=== PATIENT | female | born 1990 | race Hispanic/Latino ===

== ENCOUNTER 2018-01-04 09:25 | Inpatient (IN) | payer MEDICAID, SELFPAY ==
[2018-01-04] VITALS (16 sets, daily range): BP systolic 90–119; BP diastolic 55–72; PULSE 76–105; RESP 14–18; TEMP 36.4–37.5; O2SAT 96–100; BMI 43.9
--- NOTE | 2018-01-04 | FALS_PTH ---
PATIENT: JR CHAPPELL LOC: [facility] U#:[id number] AGE/SX: 27/F ROOM: WP008 RE01/04/[address]: Dr. Kathy Dejesus MD : 1990 BED: 1 DIS: 01/06/2018 SPEC #: [id number] RECD: 01/05/18 08:35 STATUS: MARCO A RELL #: [id number] ZHANG: 01/04/18 00:[address]: Kathy Dejesus DEPT: SURGICAL PATHOLOGY RECD BY: Mansoor Castillo ENTERED: 01/05/18 08:36 SP TYPE: FALL TUBES OTHR DR: Dr. Dago Sexton MD Tissues: Fallopian tube Procedures: Surgery Specimen Level II HEADER OPERATION: Not noted PRE-OP DIAGNOSIS: Repeat , BTO TISSUE SUBMITTED: Fallopian tubes MICROSCOPIC DIAGNOSIS Bilateral fallopian tubes, salpingectomy: Bilateral fallopian tubes including fimbrial ends, no pathologic diagnosis. SJ:cornelia 01/08/18 MICROSCOPIC DESCRIPTION Slides are reviewed. GROSS DESCRIPTION Received in fixative is one container labeled with the patient's name and designated suture, left. Received are bilateral fallopian tubes, including fimbrial ends. The left tube is identified by a suture. The right tube measures 7.5 cm in length and 0.6 cm in diameter. Sections reveal unremarkable cut surfaces. The left fallopian tube is similar to appearance to right and measures 6.5 cm in length and 0.7 cm in diameter. Biochemical Engineer sections are submitted in 2 cassettes as follows: 1 ? right fallopian tube, 2 ? left fallopian tube. RUTH:cornelia 01/05/18 TC:4 CPT:63438 x2
[2018-01-04] MEDS: Lactated Ringers 1,000 ML 999 ML IV (10:03)
[2018-01-04 10:04] LABS: Absolute Lymphocyte Count 1.28 X10^3/ul (0.83-4.51); Absolute Neutrophil Count 6.7 X10^3/uL (2.0-7.7); Basophil# 0.02 X10^3/uL; Basophil% 0.2 % (0-1); Eosinophils% 2.2 % (0-5); Hematocrit 35.6 % (37-47); Hemoglobin 11.4 g/dl (12.0-15.0); Lymphocyte # 1.28 X10^3/ul (4.0); Lymphocyte % 14.2 % (19-41); Mean Corpuscular Hgb 28.3 pg (27.0-32.0); Mean Corpuscular Volume 88.3 fL (81-99); Mean Platelet Vol. 10.5 fl (6.2-12.0); Monocyte# 0.86 X10^3/uL; Monocyte% 9.5 % (0-10); Neutrophil # 6.65 X10^3/uL (2.7-7.7); Neutrophil % 73.7 % (47-70); Platelet Count 203 K/mm3 (150-450); RBC Distribution Width CV 15.1 % (11.6-14.6); RBC Distribution Width SD 48.3 fl (35.1-43.9); Red Blood Count 4.03 M/mm3 (4.2-5.4)
[2018-01-04 10:08] LABS: POSITIVE COUNT NO; POSITIVE DIFFERENTIAL NO; POSITIVE MORPHOLOGY NO
[2018-01-04] MEDS: Lactated Ringers 1,000 ML 150 ML IV (11:04)
[2018-01-04] MEDS: Sodium Citrate/Citric Acid 30 ML UDC PO (11:49)
[2018-01-04] MEDS: Cefazolin 2 GM in 0.9% Normal Saline 100 ML IV (11:49)
[2018-01-04] MEDS: Oxytocin 30 units/NS 500 ml 30 UNITS/500 ML IV.SOLN 167 UNITS IV (12:42)
--- NOTE | 2018-01-04 14:17 | PCM.OB.CSR ---
Delivery Final RICARDO: 01/11/18 Gestational age: 39 Weeks and 0 Days Indications for : Repeat Elective , Desires elective sterilization Description of Procedure: Patient taken to OR where spinal anesthesia was placed. She was prepped and draped in normal sterile fashion in a dorsal lithotomy position with a leftward tilt. After ensuring adequacy of anesthesia the Pfannensteil skin incision was made and carried through to the underlying fascia w/ a bovie. The fascia was incised in the midline and carried laterally with the Toledo scissors. The rectus muscles were in the midline and the peritoneum was entered sharply. The bladder flap was dissected down with the Metzenbaum scissors and careful blunt dissection. The uterine incision was made with the scalpel and extended laterally w/ blunt dissection. The fetus was vertex and the head was brought to the incision in the flexed position. With good fundal pressure the head delivered. Gentle traction placed on head to allow delivery of anterior & posterior shoulders. No excess traction placed on head. Body delivered easily. The cord was clamped and cut after 1 minute delay and the infant handed off to waiting RN. The placenta was delivered w/ gentle traction and fundal massage and the uterus was exteriorized and cleared of all clots and debris. The uterine incision was closed with 1 vicryl suture in a running locked fashion. The uterus was returned to the peritoneal cavity which was cleared of all clots and debris. The right fallopian tube was grasped with hugo clamps. The fallopian tube was excised & doubly suture ligated. This was repeated on the left fallopian tube. One additional figure of 8 suture was placed at the right salpingectomy site. Excellent hemostasis was noted at both salpingectomy sites. Pelvis was irrigated. The uterine incision was reexamined and found to be hemostatic. Some rafi was placed over the uterine incision due to the denuded areas. At this time a bladder defect was noted. called & bladder injury repaired (please see separate op note) The fascia was closed with looped PDS suture in a running standard fashion. The subcutaneous tissue was examined, any bleeding bovie cauterized. The subcutaneous tissue was reapproximated with 3-0 vicryl suture. The skin was closed in a subcuticular fashion by the APPAREL EMBROIDERY DIGITIZER with me present in the labor and delivery suite. I performed the remainder of the procedure w/ assistance. Amniotic Membrane Rupture Type: Artificial Amniotic Fluid Description: Clear Placenta Disposition: [facility] Specimen(s) sent to pathology: bilateral fallopian tubes Drain: Galindo to straight drain Cord Entanglement: None Cord Vessel Description: 3 Vessels Esitmated Blood Loss (ml): 800ml Gender: Female (1 minute): 8 (5 minute): 9 Delayed cord clamping: Yes Pre-op Antibiotic Given: Ancef 2 grams IV x1 Complications: - - Cystotomy
--- NOTE | 2018-01-04 14:19 | PCM.IMED.CSR ---
O-Pdbeavc-Kxbltrdpu PostOp Date of Procedure: 01/04/18 Primary Surgeon/Physician: Kathy Dejesus assistant womens volleyball coach: David Diana Pre-op Diagnosis: Repeat Elective , Desires elective sterilization Post-Op Diagnosis: Repeat Elective , Desires elective sterilization Surgery/Procedure Performed: Repeat low transverse Section - Bilateral salpingectomy; Cystotomy repair Description of Surgical Findings:: normal uterus & ovaries Estimated Blood Loss: 800ml Specimens Removed: bilateral fallopian tubes Drain: Galindo to straight drain Type of Anesthesia: Epidural
[2018-01-04 14:46] LABS: Pathology Specimen OB SEE PATHOLOGY REPORT
--- NOTE | 2018-01-04 15:00 | NURSING ---
[facility] lot #[id number], use by 10/04/2022
[2018-01-04] MEDS: proMETHazine 25 MG/ML Syringe 12.5 MG IV (15:18)
--- NOTE | 2018-01-04 17:45 | PCM.OPRPT ---
Report of Operation Date of Procedure: 01/04/18 Pre-Operative Diagnosis: Bladder injury at the time of Post-Operative Diagnosis: Same Surgery/Procedure Performed:: Repair of open cystotomy Description of Surgical Findings:: 27-year-old female who underwent elective she had a history of prior surgery in the area and I was called in to see the patient the baby had already been delivered by a injury to the dome of the bladder was recognized by the technology development intern and they called me and to assist in repairing the injury. When I scrubbed and she had a lower Pfannenstiel incision the uterus has been closed and the top of the bladder had an opening about 5 cm in length appeared to be in the midline from the top going anterior, I closed the first layer with 3-0 Vicryl in a continuous fashion. I then closed the second layer with a imbrication of 2-0 Vicryl over the top of the first layer we then had the bladder filled up with 300 cc of water and there was no leakage from the repair of the bladder injury. No other obvious injury was recognized and at this point turned the case over to the technology development intern who closed the abdomen. community health navigator: David Diana Type of Anesthesia:: General Estimated Blood Loss (mL): 800ml - Admit VTE Documentation VTE Present on Admission: Yes VTE Mechan Device Prophylaxis: SCD's
--- NOTE | 2018-01-04 17:51 | CON.PCM_ITS ---
Reason for Consult Date of Consultation: 01/04/18 Reason for Consultation: Bladder injury History of Present Illness: The patient is a 27 year old female who had an injury to her bladder during a C- section I was called in to assist with repair of the bladder injury. Past Medical History Allergies No Known Allergies Allergy (Verified 01/04/18 10:03) Home Medications: Ambulatory Orders Medication Instructions Recorded Vits [Prenatabs FA] 1 tablet PO DAILY 07/22/17 Famotidine [Pepcid] 20 mg PO DAILY 01/04/18 Surgical History: noncontributory Psychiatric History: No pertinent psych hx Smoking Status: Former smoker Tobacco Use: Non-smoker Alcohol: None Drugs: None - *Family History Maternal History Items: No pertinent history Review of Systems Constitutional: Denies: Chills, Fever, Weight Change HEENT: Denies: Head Aches, Sinus Congestion, Sinus Drainage Cardiovascular: Denies: Chest Pain, Palpitations Respiratory: Denies: Cough, Shortness of breath at rest, Sputum production Gastrointestinal: Denies: Abdominal Pain, Nausea, Vomiting Genitourinary: Denies: Dysuria Musculoskeletal: Denies: Joint Pain, Joint Tenderness Skin: Denies: Rash, Wounds Neurological: Denies: Numbness, Tingling, Focal weakness Psychiatric: Denies: Anxiety, Depression, Homicidal Ideations, Suicidal Ideations Hematologic/ Lymphatic: Denies: Easy Bruising, Easy Bleeding Physical Exam - Physical Exam Vital Signs Temp 98.7 F 01/04/18 17:30 Pulse 92 01/04/18 17:30 Resp 16 01/04/18 17:30 BP 103/61 01/04/18 17:30 Pulse Ox 100 01/04/18 17:30 Intake & Output 01/02/18 01/03/18 01/04/18 23:59 23:59 23:59 Intake Total 2271 / 2271 Output Total 525 / 525 Balance 1746 / 1746 Weight: 98.6 kg Intake: Oral 300 / 300 IV fluid/meds 1970 IV #4 1800 / 1800 Output: Urine 275 / 275 Emesis 250 / 250 HEENT: Atraumatic Neck: Supple Lungs: Normal air movement Cardiovascular: Regular rate Laboratory Tests Past 24 Hrs 01/04/18 01/04/18 09:45 09:45 WBC 9.0 RBC 4.03 L Hgb 11.4 L Hct 35.6 L MCV 88.3 MCH 28.3 MCHC 32.0 RDW 15.1 H RDW Differential 48.3 H Plt Count 203 MPV 10.5 Immature Gran % (Auto) 0.200 Neut % (Auto) 73.7 H Lymph % (Auto) 14.2 L [place] % (Auto) 9.5 Eos % (Auto) 2.2 Baso % (Auto) 0.2 Absolute Neuts (auto) 6.7 Absolute Lymphs (auto) 1.28 Total Counted Not Reportable Blood Type A POSITIVE Antibody Screen NEGATIVE Assessment/Plan Bladder injury repair pt will need follow up with urology on discharge my office will call patient to arrange. home with cantu.
[2018-01-04] MEDS: 0.9% Saline Lock 10 ML Syringe IV (17:53)
[2018-01-04] MEDS: Ketorolac 30 MG/ML Syringe IV ×2 (17:53→23:58)
[2018-01-04] MEDS: Lactated Ringers 1,000 ML 100 ML IV (21:50)
[2018-01-05] VITALS (9 sets, daily range): BP systolic 93–118; BP diastolic 63–74; PULSE 73–92; RESP 16; TEMP 36.4–37.3; O2SAT 97–99
[2018-01-05] MEDS: Ketorolac 30 MG/ML Syringe IV ×3 (06:19→17:53)
[2018-01-05 06:55] LABS: Hematocrit 29.8 % (37-47); Hemoglobin 9.7 g/dl (12.0-15.0); Mean Corp Hgb Conc 32.6 g/gl (32-36); Mean Corpuscular Hgb 28.4 pg (27.0-32.0); Mean Corpuscular Volume 87.4 fL (81-99); Mean Platelet Vol. 10.6 fl (6.2-12.0); Platelet Count 195 K/mm3 (150-450); RBC Distribution Width CV 15.3 % (11.6-14.6); RBC Distribution Width SD 48.6 fl (35.1-43.9); Red Blood Count 3.41 M/mm3 (4.2-5.4); White Blood Count 12.5 K/mm3 (4.4-11.0)
[2018-01-05 06:56] LABS: Scan Indicated on CBC? Y/N NO
[2018-01-05] MEDS: Lactated Ringers 1,000 ML 100 ML IV (08:20)
--- NOTE | 2018-01-05 08:27 | PN.OBGYN_ITS ---
Subjective: pt seen at bedside, doing well. pt reports good pain control. lochia mild. passing flatus. - Physical Exam General: Alert, Oriented x3 Abdomen: Soft, Non-Distended, Passing Flatus, - - fundus firm .dressing dry and intact Extremities: No Calf Tenderness Vital Signs Temp Pulse Resp BP Pulse Ox 97.5 F L 88 16 93/63 98 01/05/18 04:00 01/05/18 04:00 01/05/18 06:10 01/05/18 04:00 01/05/18 06:10 Oxygen Delivery Method Room Air Weight: 98.6 kg Body Mass Index (BMI) 43.9 Intake and Output for Last 24 Hours 01/03/18 01/04/18 01/05/18 23:59 23:59 23:59 Intake Total 2271 / 2271 1398 / 1398 Output Total 525 / 525 1100 / 1100 Balance 1746 / 1746 298 / 298 Laboratory Tests Past 24 Hrs 01/04/18 01/04/18 01/05/18 09:45 09:45 06:25 WBC 9.0 12.5 H RBC 4.03 L 3.41 L Hgb 11.4 L 9.7 L Hct 35.6 L 29.8 L MCV 88.3 87.4 MCH 28.3 28.4 MCHC 32.0 32.6 RDW 15.1 H 15.3 H RDW Differential 48.3 H 48.6 H Plt Count 203 195 MPV 10.5 10.6 Immature Gran % (Auto) 0.200 Neut % (Auto) 73.7 H Lymph % (Auto) 14.2 L [place] % (Auto) 9.5 Eos % (Auto) 2.2 Baso % (Auto) 0.2 Absolute Neuts (auto) 6.7 Absolute Lymphs (auto) 1.28 Total Counted Not Reportable Blood Type A POSITIVE Antibody Screen NEGATIVE Medical Necessity - Tobacco Use Smoking Status: Former smoker Tobacco Use: Non-smoker Assessment/Plan POD#1 1) bladder injury- urology consultation done intraop - will keep cantu- Dr. Roberts office to call for follow up in about 10 days for cystogram 2) pain mgmt 3) maintain cantu 4) ambulation
--- NOTE | 2018-01-05 08:33 | DCINST_ITS ---
Discharge Diet: No Restrictions Discharge Activity: Return to Normal Activity, May Not Drive - for 2 weeks, May not drive while taking narcotic pain medications., May Shower, May Take a Tub Bath - in 7 days. May resume sexual activity in: 4-6 weeks Lifting Restrictions: 20 pounds Additional Activity Instructions:: Nothing in the vagina for 4-6 weeks. You may return to work/school in 6 weeks. Call your doctor if your incision/area has: Continuous Slow Oozing, Sudden Increased Bleeding, Increased Pain/ Swelling, Increased Redness, Foul Smelling Discharge Call your doctor if you observe: Fever of 101 or Higher, Using more than one pad per hour - for 2 hours Suture Line Care: Avoid Pulling/Pushing, Avoid Pinching/Bending Cleanse incision/area with: Keep Dressing Clean & Dry Additional Instructions: If you experience any of the following, contact your healthcare provider. * Bleeding that soaks a pad every hour for 2 hours * Fever 100.4 or higher * Unrelieved incision or abdominal pain * Swelling, redness, discharge or bleeding from your incision or episiotomy site * Your incision begins to separate * Problems urinating (including inability to urinate or burning while urinating) . * Visual changes * Severe headache * Flu-like symptoms * Pain or redness in one of both of your breasts * Pain, warmth, tenderness or swelling in your legs, especially the calf area * Frequent nausea and vomiting * Symptoms of depression or anxiety If you experience any of the following, call 911 or go to the nearest Emergency Room. * Chest pain * Problems breathing * Seizure activity * Partial or complete paralysis of a body part, slurred speech, weakness or drooping of the face, or a sudden inability to walk or hold your balance Allergies/Adverse Reactions: Allergies No Known Allergies Allergy (Verified 01/04/18 10:03) Medications to take at Discharge Vits [Prenatabs FA] 1 tablet PO DAILY 07/22/17 Famotidine [Pepcid] 20 mg PO DAILY 01/04/18 Ibuprofen [Motrin] 800 mg PO Q8H PRN PRN #30 tab 01/05/18 Oxycodone HCl/Acetaminophen [Percocet 5/325] 1 tablet PO Q6H PRN PRN 7 Days #28 tablet 01/05/18 Senna/Docusate Sodium [Senokot-S] 1 - 2 tab PO DAILY PRN #30 tab 01/05/18 SimETHICONE [Mylicon] 80 mg PO PCHS PRN #30 tab 01/05/18 The following prescriptions were given: Oxycodone HCl/Acetaminophen [Percocet 5/325] 1 tablet PO Q6H PRN PRN 7 Days #28 tablet PRN Reason: Pain Ibuprofen [Motrin] 800 mg PO Q8H PRN PRN #30 tab PRN Reason: Pain Senna/Docusate Sodium [Senokot-S] 1 - 2 tab PO DAILY PRN #30 tab PRN Reason: Constipation SimETHICONE [Mylicon] 80 mg PO PCHS PRN #30 tab PRN Reason: Indigestion/stomach pain Follow-Up: Call to make an appointment with your doctor for an incision check in 1-2 weeks. You will also need a 6 week post- follow up appointment. Please Follow Up With: Nany Morrow MD - Call to make an appointment for an incision check in 1-2 [phone] When: You will need a post- check in 6 weeks. Primary Care Physician: Dago Sexton MD [Primary Care Provider] -
[2018-01-05] MEDS: 0.9% Saline Lock 10 ML Syringe IV ×2 (12:11→17:53)
[2018-01-05] MEDS: oxyCODONE 5 MG Tablet PO ×2 (17:20→23:01)
[2018-01-05] MEDS: Senna/Docusate Sodium 1 Tablet PO (20:49)
[2018-01-06] MEDS: Ketorolac 30 MG/ML Syringe IV ×3 (00:12→12:12)
[2018-01-06] MEDS: 0.9% Saline Lock 10 ML Syringe IV ×2 (00:13→12:13)
[2018-01-06 02:00] VITALS: BP 102/62; PULSE 74; RESP 16; TEMP 37.1; O2SAT 97
[2018-01-06 08:00] VITALS: BP 119/70; PULSE 81; RESP 17; TEMP 36.8; O2SAT 100
--- NOTE | 2018-01-06 08:03 | PCM.PN.OB ---
Subjective: pt seen at bedside doing well. pt reports good pain control. lochia mild. denies CP, SOB, dizziness. Passing flatus - Physical Exam General: Alert, Oriented x3 Abdomen: Soft, Non-Distended, - - fundus firm. Extremities: No Calf Tenderness Vital Signs Temp Pulse Resp BP Pulse Ox 98.8 F 74 16 102/62 97 01/06/18 02:00 01/06/18 02:00 01/06/18 02:00 01/06/18 02:00 01/06/18 02:00 Oxygen Delivery Method Room Air Weight: 98.6 kg Body Mass Index (BMI) 43.9 Intake and Output for Last 24 Hours 01/04/18 01/05/18 01/06/18 23:59 23:59 23:59 Intake Total 2271 / 2271 1398 / 1398 Output Total 525 / 525 2150 / 2150 1400 / 1400 Balance 1746 / 1746 -752 / -752 -1400 / -1400 Medical Necessity - Tobacco Use Smoking Status: Former smoker Tobacco Use: Non-smoker Assessment/Plan POD#2, doing well routine care pain mgmt [facility]
--- NOTE | 2018-01-06 08:05 | PCM.DC.BLA ---
Discharge Summary Date of Admission: 01/04/18 Date of Discharge: 01/06/18 Summary: This patient was admitted with the [facility] on 01/04/2018 for a scheduled repeat section and bilateral tubal ligation performed by Dr. Kathy Dejesus. Patient had an incidental cystotomy during the procedure. Had a cystotomy repaired performed by Dr. Nelson Roberts without complication. Patient did well postoperatively urine output was adequate. Urine that was draining was light yellow in nature. Postoperative labs were stable. Patient discharged home on postoperative day #2 January 06, 2018 in stable condition. Patient will have a Galindo to leg bag until she was seen by Dr. Alejandra wesley in his office approximately 10 days from now. Patient was given DR. Roberts office number to call for an appointment.
--- NOTE | 2018-01-06 08:08 | DS.PCM_ITS ---
Discharge Summary Date of Admission: 01/04/18 Date of Discharge: 01/06/18 Summary: This patient was admitted with the [facility] on 01/04/2018 for a scheduled repeat section and bilateral tubal ligation performed by Dr. Kathy Dejesus. Patient had an incidental cystotomy during the procedure. Had a cystotomy repaired performed by Dr. Nelson Roberts without complication. Patient did well postoperatively urine output was adequate. Urine that was draining was light yellow in nature. Postoperative labs were stable. Patient discharged home on postoperative day #2 January 06, 2018 in stable condition. Patient will have a Galindo to leg bag until she was seen by Dr. Alejandra wesley in his office approximately 10 days from now. Patient was given DR. Roberts office number to call for an appointment.
[2018-01-06] MEDS: oxyCODONE 5 MG Tablet PO (11:01)
[2018-01-06 13:00] VITALS: BP 120/70; PULSE 74; RESP 16; TEMP 36.7; O2SAT 99
== END 2018-01-06 13:15 | disposition home or self-care (01) | DRG 370 ==
PROVIDERS: Admitting Provider Obstetrics & Gynecology; Family Provider Family Medicine; PCP Family Medicine; Visit Provider Obstetrics & Gynecology
PROC: 10D00Z1 Extraction of Products of Conception, Low, Open Approach (ICD-10-PCS; CPT 59514; principal; 2018-01-04 11:45)
DX: O34.211 Maternal care for low transverse scar from previous cesarean delivery (principal); N99.71 Accidental puncture and laceration of a genitourinary system organ or structure during a genitourinary system procedure; O71.5 Other obstetric injury to pelvic organs; Z3A.39 39 weeks gestation of pregnancy; Z37.0 Single live birth
CPT/HCPCS: 36415; 85025; 85027; 86850; 86900; 88302; 99218; J7120; A4216; G0378; J2405; Q9968

== ENCOUNTER → 2018-01-15 11:26 | Outpatient (CLI) | payer MEDICAID, SELFPAY ==
--- NOTE | 2018-01-15 11:37 | RAD_ITS ---
CLINICAL HISTORY: Female, 27 years old. Assessment of the prior bladder injury. PROCEDURE: Cystogram. FLUOROSCOPY TIME (if supplied): (0:40) minutes/seconds 150 mL of contrast installed into the bladder in a retrograde fashion through the indwelling Galindo catheter. The radiologist installed the contrast into the bladder. RAD/Cystography min 3 Views IMPRESSION: There is no evidence of bladder leakage. No evidence of vesicoureteral reflux. Electronically Signed: Chris Cheung MD at 12:35 EDT Tel [phone], Service support ,
== END ==
PROVIDERS: Family Provider Family Medicine; PCP Family Medicine; Visit Provider Urology
DX: S37.20XD Unspecified injury of bladder, subsequent encounter (principal)
CPT/HCPCS: 51600; 74430

== ENCOUNTER 2018-08-31 12:42 | Emergency (ER) | payer MEDICAID, SELFPAY ==
[2018-08-31 12:43] VITALS: BP 121/70; PULSE 118; RESP 18; TEMP 37.1; O2SAT 96; BMI 43.4
--- NOTE | 2018-08-31 13:20 | ED.DCSUM_ITS ---
- ER Visit Summary Date of Service: 08/31/18 Chief Complaint: Subjective fever, nasal congestion and cough History of Present Illness: The patient is a 28 F who presents with illness that started less than 48 hours ago. She complains of headache, sore throat, nonproductive cough, subjective fever with myalgias and arthralgias. She denies GI or symptoms. She denies joint swelling. Does complain of myalgias and arthralgias. She has not noted a rash. She denies photophobia, neck pain or neck stiffness. She is a non-smoker. 2 of her siblings were ill several days prior to the onset of her illness. Physical Examination: Vital signs noted. Patient appears ill but not toxic. Head is atraumatic normocephalic. Pupils are equal round reactive. Extraocular muscles are intact. TMs are pearly white with landmarks noted. Nares patent with mild clear drainage. Posterior pharynx without erythema or exudate. Uvula is midline. There is no dysphonia or dysphasia. Trachea is midline. There is no stridor with auscultation of the neck. Heart is regular without murmur, gallop or rub. S1 and S2 are normal. Lungs are clear to auscultation with good movement of air bilaterally. Abdomen soft nontender. Neuro exam nonfocal. Test Results: None were obtained Emergency Department Course and Treatment: Approximate 8-month-old child here with flulike symptoms. Child's influenza rapid screen is positive will treat mother as well. Mother received first dose of Tamiflu Treatment Plan: Tamiflu 75 mg twice daily Disposition: Discharge to home Impression: Influenza type a This note was generated with [employer] dictation software. It may contain incorrect words, spelling, and punctuation that were not noted in review of the chart prior to signing ED Disposition - Plan for ED Patient: Disposition: Home or Assisted Living Instructions: ED Flu Prescriptions: Oseltamivir Phosphate [Tamiflu] 75 mg PO BID #10 capsule Referrals: Dago Sexton MD [Primary Care Provider] - 10-14 Days if not better Additional Instructions: Your prescription was electronically transmitted to [facility] pharmacy located on [address] your designated pharmacy of choice.
[2018-08-31 13:38] VITALS: O2SAT 97
[2018-08-31] MEDS: Oseltamivir Phosphate 75 MG Capsule PO (13:48)
== END 2018-08-31 14:45 | disposition home or self-care (01) ==
PROVIDERS: Emergency Provider Emergency Medicine; Family Provider Family Medicine; PCP Family Medicine
DX: J09.X2 Influenza due to identified novel influenza A virus with other respiratory manifestations (principal); E66.9 Obesity, unspecified; J32.9 Chronic sinusitis, unspecified; Z79.899 Other long term (current) drug therapy
CPT/HCPCS: 99283

== ENCOUNTER 2019-04-18 13:37 | Emergency (ER) | payer MEDICAID, SELFPAY ==
[2019-04-18 13:38] VITALS: BP 109/71; PULSE 64; RESP 18; TEMP 37.1; O2SAT 100; BMI 42.2
--- NOTE | 2019-04-18 13:53 | CT_ITS ---
STUDY: CT ABDOMEN AND PELVIS WITHOUT CONTRAST REASON FOR EXAM: Female, 28 years old. Left flank pain. RADIATION DOSAGE (If Supplied By Facility): CTDIvol = ( 20.39 ) mGy, DLP = ( 1029.00 ) mGycm TECHNIQUE: Transaxial images were obtained from the dome of the diaphragm to the symphysis pubis without oral contrast, and without intravenous contrast. Sagittal and coronal images were reconstructed. Individualized dose optimization techniques were used for this CT. COMPARISON: None. FINDINGS: The visualized lung bases are unremarkable. The visualized portions of the heart are within normal limits. The liver is normal. The spleen is normal. The adrenal glands are normal. The head, body, and tail of the pancreas are normal. The kidneys are normal with no evidence of calyceal calculi, masses, seen. There is mild left renal hydronephrosis and hydroureter down to level of the urinary bladder. Within the bladder is a 5 mm calculus which presumably has passed from the left ureter.The abdominal aorta appears to be normal and no periaortic lymphadenopathy is seen. No abdominal masses or lesions are identified. A CT scan of the pelvis was performed and shows the common iliac vessels, external iliac vessels and common femoral vessels to be normal along their course and distribution. Uterus is anteflexed. The appendix cannot be visualized. The cecum is identified and appears normal and no pericecal inflammatory reaction is seen Bone scanning windows of the lumbar spine pelvis were reviewed in the coronal and sagittal planes and show no additional abnormalities. CT/Abdomen/Pelvis without Cont IMPRESSION: Mild left renal hydronephrosis and hydroureter due to a recently passed 5 mm ureteral calculus which is now in the urinary bladder.. Electronically Signed: Orlin Rico, at 16:34 EDT Tel , Service support ,
--- NOTE | 2019-04-18 13:54 | ED.VISSUMM ---
- ER Visit Summary Date of Service: 04/18/19 Chief Complaint: Flank pain History of Present Illness: The patient is a 28 F with left-sided flank pain that started relatively suddenly earlier today. It radiates into her vaginal area. She had some hematuria in the past. Associate with nausea and vomiting. No history of kidney stones. No other pertinent history of findings. Physical Examination: Afebrile and vital signs unremarkable. Patient appears uncomfortable, clutching an emesis bag. Heart regular. No respiratory distress. Left flank tender. Test Results: Labs, urine, CT pending Emergency Department Course and Treatment: Patient treated with fluids, Zofran, Toradol while awaiting results. CBC, BMP, urine macro all fairly unremarkable. test was negative. We are awaiting urine micro and CT results. Patient is comfortable and vitals are stable after Toradol, Zofran, fluids, and morphine. The oncoming doctor will check the urine micro and CT results. Disposition and treatment accordingly. I notified the patient that these results are pending, and we will treat her accordingly. Treatment Plan: As above Disposition: Pending Impression: 1. Left flank pain This note was generated with [employer] dictation software. It may contain incorrect words, spelling, and punctuation that were not noted in review of the chart prior to signing ED Disposition - Plan for ED Patient: Referrals: Dago Sexton MD [Primary Care Provider] -
[2019-04-18] MEDS: Ondansetron 4 MG/2 ML Vial IV (14:04)
[2019-04-18] MEDS: 0.9% Normal Saline 1,000 ML 1000 ML IV (14:04)
[2019-04-18] MEDS: Ketorolac 30 MG/ML Syringe IV (14:08)
[2019-04-18 14:23] LABS: Absolute Lymphocyte Count 2.57 X10^3/uL (0.83-4.51); Basophil# 0.05 X10^3/uL; Basophil% 0.5 % (0-1); Eosinophil# 0.32 X10^3/uL; Eosinophils% 2.9 % (0-5); Hematocrit 39.1 % (37-47); Hemoglobin 12.2 g/dL (12.0-15.0); Lymphocyte # 2.57 X10^3/ul (4.0); Lymphocyte % 23.5 % (19-41); Mean Corp Hgb Conc 31.2 g/dL (32-36); Mean Corpuscular Hgb 26.6 pg (27.0-32.0); Mean Corpuscular Volume 85.4 fL (81-99); Monocyte# 0.95 X10^3/uL; Monocyte% 8.7 % (0-10); NRBC Flagged by Analyzer 0 % (0-5); Neutrophil # 7.01 X10^3/uL (2.7-7.7); Neutrophil % 64.2 % (47-70); Platelet Count 322 K/mm3 (150-450); RBC Distribution Width CV 14.6 % (11.6-14.6); RBC Distribution Width SD 45.1 fl (35.1-43.9); Red Blood Count 4.58 M/mm3 (4.2-5.4); White Blood Count 10.9 K/mm3 (4.4-11.0)
[2019-04-18 14:34] LABS: Anion Gap 7 (5-15); BUN 13 mg/dL (7-18); BUN/Creat Ratio 16.5 RATIO (10-20); Calcium,Total 9.3 mg/dL (8.5-10.1); Chloride 106 mmol/L (98-107); Creatinine, Serum 0.79 mg/dL (0.55-1.02); EST Glomerular Filtration Rate 92 mL/min (>60); Est Glom Filt Rate - Afr Amer 111 mL/min (>60); Estimated Creatinine Clearance 158.67 ml/min; Glucose 114 mg/dL (74-106); Potassium 3.7 mmol/L (3.5-5.1); Sodium Level 139 mmol/L (136-145)
[2019-04-18] MEDS: Morphine 4 MG/ML Syringe IV (15:12)
[2019-04-18 15:50] LABS: White Blood Cells 0 SEEN /hpf (0-5)
[2019-04-18 15:55] LABS: Color, Urine Yellow (Yellow); Glucose, Dipstick Normal (Normal); Ketone-Dipstick 5 mg/dl (Negative); Leukocyte Esterase-Dipstick Negative /ul (Negative); Nitrite-Dipstick Negative (Negative); Occult Blood-Urine 25 /ul (Negative); Protein-Dipstick 15 mg/dl (Negative); Specific Gravity, Urine 1.025 (1.002-1.030); Urine Bilirubin Dipstick Negative (Negative); Urine Clarity Sl. Cloudy (Clear); Urine Urobilinogen Normal (Normal)
[2019-04-18 15:57] LABS: Internal QC Validated? YES +Cl - CLEAR BKGD; Pregnancy, Urine Negative Negative
[2019-04-18 16:06] LABS: Mucous, Urine 3+ /hpf (<or=2+); Squamous Epithelial Cells - UA 5-10 SEEN /hpf (5-10)
[2019-04-18 16:07] LABS: Red Blood Cells-Urine 0-5 SEEN /hpf (0-5)
[2019-04-18 16:13] LABS: Bacteria 1+ /hpf (None Seen)
[2019-04-18 16:16] VITALS: BP 100/78; PULSE 64; RESP 16; O2SAT 100
--- NOTE | 2019-04-18 16:39 | ED.DCSUM_ITS ---
- ER Visit Summary Date of Service: 04/18/19 Chief Complaint: [Left flank pain/addendum to initial dictation] History of Present Illness: The patient is a 28 F [presented with left flank pain today that started suddenly. Care of patient turned over to me awaiting report of CT scan to evaluate for kidney stone. Patient currently has minimal pain and is feeling well.] Physical Examination: [HEENT-PERRLA, EOMI. Cranial nerves II through XII grossly intact. TMs clear. Mucous membranes moist. No adenopathy. Cardiovascular-regular rate and rhythm without murmur or ectopy Lungs-clear to auscultation, chest wall stable without crepitus or subcu emphysema Abdomen-normoactive bowel sounds, soft, nontender, no rebound or rigidity, no peritoneal signs. Extremities-intact ?4, normal range of motion, normal pulses, atraumatic] Test Results: [CT scan of the abdomen pelvis was read by radiology has mild left renal hydronephrosis and hydroureter due to recently passed 5 mm ureteral calculus which is now in the urinary bladder.] Emergency Department Course and Treatment: [She had been medicated by Dr. Durbin with Zofran, Toradol, and morphine and she was doing well.] Treatment Plan: [She will be given urine strainers and referral to urology for follow-up. Patient will be given a prescription for a few [place] for pain.] Disposition: [Discharged home in stable condition. Patient advised to return if worsening pain, fever, vomiting, or conditions worsen anyway.] Impression: [No lithiasis] This note was generated with [employer] dictation software. It may contain incorrect words, spelling, and punctuation that were not noted in review of the chart prior to signing ED Disposition - Plan for ED Patient: Referrals: Dago Sexton MD [Primary Care Provider] -
--- NOTE | 2019-04-18 16:41 | DCINST.ED_ITS ---
ED Disposition - Plan for ED Patient: Instructions: KIDNEY STONE w/ Colic, KIDNEY STONE, Passed Prescriptions: Hydrocodone Bitart/Apap 5-325 [[place] 5MG-325MG] 1 tab PO Q4H PRN PRN 2 Days #10 tab PRN Reason: Pain Prescription Printed Referrals: Dago Sexton MD [Primary Care Provider] - Kyler Roberts MD [STAFF PHYSICIAN] - 3-5 Days
[2019-04-18 16:51] VITALS: RESP 16
== END 2019-04-18 16:53 | disposition home or self-care (01) ==
LOC: ED 13:58
PROVIDERS: Emergency Provider Emergency Medicine; Family Provider Family Medicine; PCP Family Medicine
DX: R10.9 Unspecified abdominal pain (principal); N21.0 Calculus in bladder
CPT/HCPCS: 74176; 80048; 81001; 81025; 85025; 96361; 96374; 96375; 99283; J7030; J2405